=== PATIENT | male | born 1995 | race Caucasian/White ===

== ENCOUNTER 2025-04-04 15:08 | Observation (INO) ==
[2025-04-04] MEDS ORDERED: NS 1,000 ML IV 1,000 ML ONE (17:08)
[2025-04-04] MEDS: NS 1,000 ML IV 1,000 ML IV ONE (17:09)
[2025-04-04 17:47] VITALS: BMI 36.9
[2025-04-04] MEDS: TYLENOL 325 MG TAB PO PRN (21:17)
[2025-04-04] MEDS: NS 1,000 ML IV 1,000 ML IV SCH (22:33)
[2025-04-05 05:01] LABS: MEAN PLATELET VOLUME 9.2 fL (7.4-11.0)
[2025-04-05 05:06] LABS: RED CELL DISTRIBUTION WIDTH 13.3 % (11.6-16.5)
[2025-04-05 05:08] LABS: CREATININE 1.13 mg/dL (0.70-1.30); eGFR NON BLACK RACES > 60 (>60)
[2025-04-05 05:24] LABS: PLATELET MORPHOLOGY COMMENT NORMAL (NORMAL)
[2025-04-05] MEDS ORDERED: CONSULT PHARMACY - POTASSIUM & MAGNESIUM XX SCH ×2 (06:00→07:00)
[2025-04-05] MEDS: K-DUR TAB 20 MEQ PO SCH (08:14)
[2025-04-05] MEDS: MAG-OX TAB PO SCH (08:14)
[2025-04-05 12:40] VITALS: BP 124/67; PULSE 90; RESP 20; TEMP 98.7; O2SAT 97
--- NOTE | 2025-04-05 17:24 | DR.SSS ---
SHORT STAY SUMMARY Admission Date Date of Admission: 04/04/25 Discharge Date Discharge Date: 04/05/25 Admission Diagnoses Admission Diagnoses: Splenomegaly, fever Discharge Diagnoses Discharge Diagnoses: Viral syndrome, likely mono, splenomegaly, dehydration. Chief Complaint Chief Complaint: Fatigue, fever History of Present Illness History of Present Illness: Patient directly admitted from [employer] office due to splenomegaly, 3 weeks of fatigue and intermittent fevers, elevated liver enzymes, and elevated lymphocyte count in setting of normal total WBCs. Multiple family members with mono this summer. Patient has been trying to work 12 to 16-hour days with worsening fatigue for the last 2 to 3 weeks. Has been having fevers up to 103. Was weak, tired, and febrile in his PCPs office yesterday. PMH: Denies PSH: Denies Social: , works in a sawmill and on a farm, local resident, good social support. No T/E/ID. ROS: 12 point ROS negative septa as noted above. PE: Well-developed, well-nourished male in no acute distress. Minimal tenderness over the spleen. Bowel sounds are present and belly otherwise nondistended and nontender. Heart regular in rhythm with clear lungs. Mood and affect are appropriate. Good skin color and turgor. Head NCAT, EOMI, hearing intact to conversation. Past Surgical History Surgical History: No History Allergies Allergies Allergy/AdvReac Type Severity Reaction Status Date / Time No Known Allergies Allergy Verified 04/04/25 17:47 Medications Home Medications: No Known Allergies Allergy (Verified 04/04/25 17:47) New Prescriptions acetaminophen 325 mg tablet 650 mg (2 x 325 mg) PO Q6H PRN 04/05/25 [Rx] Family History Family Medical History: Diabetes Mellitus and Hypertension Social History Does any household member use tobacco: No Alcohol Use: None Drug Use: None Physical Exam Vital Signs: Last Vital Signs Temp 98.7 F 04/05/25 12:00 Pulse 90 04/05/25 12:00 Resp 20 04/05/25 12:47 BP 124/67 04/05/25 12:00 Pulse Ox 97 04/05/25 12:00 O2 Del Method Room Air 04/05/25 12:00 Labs Labs: Laboratory Last Values WBC 7.9 X10^3/uL (3.6-10.0) 04/05/25 04:15 RBC 5.00 X10^6/uL (4.7-6.0) 04/05/25 04:15 Hgb 13.8 g/dL (13.5-18.0) 04/05/25 04:15 Hct 40.0 % (42.0-54.0) L 04/05/25 04:15 MCV 79.9 fL (80.0-100.0) L 04/05/25 04:15 MCH 27.7 pg (27.0-34.0) 04/05/25 04:15 MCHC 34.7 g/dL (33.0-35.0) 04/05/25 04:15 RDW 13.3 % (11.6-16.5) 04/05/25 04:15 Plt Count 152 X10^3/uL (150.0-450.0) 04/05/25 04:15 Plt Count Comment Adequate (ADEQUATE) 04/05/25 04:15 MPV 9.2 fL (7.4-11.0) 04/05/25 04:15 Neut % (Auto) 41.5 % (42.0-75.0) L 04/05/25 04:15 Lymph % (Auto) 51.3 % (21.0-51.0) H 04/05/25 04:15 Potter % (Auto) 6.2 % (0.0-13.0) 04/05/25 04:15 Eos % (Auto) 0.3 % (0.9-2.9) L 04/05/25 04:15 Baso % (Auto) 0.7 % (0.2-1.0) 04/05/25 04:15 Neut # (Auto) 3.3 x10^3/uL (2.2-4.8) 04/05/25 04:15 Lymph # (Auto) 4.1 X10^3/uL (1.3-2.9) H 04/05/25 04:15 Potter # (Auto) 0.5 x10^3/uL (0.3-0.8) 04/05/25 04:15 Eos # (Auto) 0.0 x10^3/uL (0.0-0.2) 04/05/25 04:15 Baso # (Auto) 0.1 X10^3/uL (0.0-0.1) 04/05/25 04:15 Absolute Nucleated RBC 0.3 /100WBC 04/05/25 04:15 Total Counted 100 04/05/25 04:15 Neutrophils % (Manual) 56 % (39-76) 04/05/25 04:15 Lymphocytes % (Manual) 40 % (13-43) 04/05/25 04:15 Monocytes % (Manual) 4 % (4-9) 04/05/25 04:15 Atypical Lymphocytes Few 04/05/25 04:15 Plt Morphology Comment Normal (NORMAL) 04/05/25 04:15 RBC Morphology Normal (NORMAL) 04/05/25 04:15 Sodium 139 mmol/L (136-145) 04/05/25 04:15 Corrected Sodium TNP 04/05/25 04:15 Potassium 3.6 mmol/L (3.5-5.1) 04/05/25 04:15 Chloride 103 mmol/L (98-107) 04/05/25 04:15 Carbon Dioxide 25.4 mmol/L (21-32) 04/05/25 04:15 BUN 9 mg/dL (7-18) 04/05/25 04:15 Creatinine 1.13 mg/dL (0.70-1.30) 04/05/25 04:15 Est GFR (MDRD) Af Amer > 60 (>60) 04/05/25 04:15 Est GFR (MDRD) Non-Af > 60 (>60) 04/05/25 04:15 Glucose 94 mg/dL (65-99) 04/05/25 04:15 Calcium 8.2 mg/dL (8.5-10.1) L 04/05/25 04:15 Corrected Calcium TNP 04/05/25 04:15 Magnesium 1.6 mg/dL (2.0-2.9) L 04/05/25 04:15 Total Bilirubin 0.60 mg/dL (0.2-1.0) 04/05/25 04:15 AST 202 Units/L (15-37) H 04/05/25 04:15 ALT 286 Units/L (12-78) H 04/05/25 04:15 Alkaline Phosphatase 347 Units/L (46-116) H 04/05/25 04:15 Total Protein 6.7 g/dL (6.4-8.2) 04/05/25 04:15 Albumin 3.6 g/dL (3.4-5.0) 04/05/25 04:15 Globulin 3.1 g/dL (2.5-4.5) 04/05/25 04:15 Albumin/Globulin Ratio 1.2 Ratio (1.1-2.1) 04/05/25 04:15 Amylase 47 Units/L (25-115) 04/05/25 04:15 Lipase 44 Units/L (16-77) 04/05/25 04:15 Assessment/Plan (1) Viral syndrome: (2) Mild dehydration: (3) Splenomegaly: (4) Transaminitis: Hospital Course Hospital Course: Patient responded well to IV fluids, rest, and as needed Tylenol. Ultrasound and labs from referring PCP's office reviewed with patient and family and charge nurse. Decision was made to discharge today with close follow-up and good rest. EBV and CMV pending at PCPs office. He will have follow-up with her in the next 24-48 hours. Next 3 weeks should be light duty or no duty. Return to ER instructions given. Discharge Medications Discharge Medications: Home Medication List acetaminophen 325 mg tablet 650 mg (2 x 325 mg) PO Q6H PRN 04/05/25 [Rx] Prescriptions: Discharge Plan Discharge Plan Patient Disposition: 01 HOME, SELF-CARE Condition: Stable Health Concerns: Post Hospitalization: new medications and changes needed to prevent readmission or further decline. Pt educated and given instructions on all concerns. Care Plan Goals: Problem: Pain/Alteration in Comfort Goal: Improve/ Resolve Pain; Achieve Pain Tolerance Instructions: Take pain medications as prescribed. Contact your primary care provider if your pain is unrelieved or worsens. Follow up with primary care provider as directed. Plan of Treatment: Continue with present treatment and follow up plan. Pt is to keep follow up appointment as instructed and take medications as ordered. Prescription drug monitoring program results: PDMP was not reviewed Prescriptions: New acetaminophen 325 mg Tablet 650 mg PO Q6H [id number] Orders to Discharge Patient Discharge Orders: Discharge (Routine); Ordered 04/05/25 Ordered By: Jose Morales Follow ups/Referrals Follow ups/Referrals: VALARIE GARCIA [Primary Care Provider, Unknown] - 04/12/25 8:45 am Instructions Instructions: Dehydration, Adult, [id number], Elevated Liver Enzymes Stand Alone Forms: Excuse From Work or School, Find Help Web Site, Post Hospital Follow Up Care Print Language: CITIZEN [place]
== END 2025-04-05 15:10 | disposition home or self-care (01) ==
LOC: MED/SURG
PROVIDERS: ADMIT Family Medicine; ATTEND Family Medicine
DX: R50.9 Fever, unspecified; R74.01 Elevation of levels of liver transaminase levels; Z20.828 Contact with and (suspected) exposure to other viral communicable diseases; R94.5 Abnormal results of liver function studies; E86.0 Dehydration; R16.1 Splenomegaly, not elsewhere classified; Z29.89 Encounter for other specified prophylactic measures